=== PATIENT | female | born 1960 | race Two or more races ===

== ENCOUNTER 2016-12-28 11:56 | Day surgery (SDC) | payer OTHER ==
[~2016-12-28] VITALS: Ht 157.5 cm; Wt 67.0 kg
[2016-12-28 13:24] VITALS: Ht 157.5 cm; Wt 67.0 kg
[2016-12-28 14:25] VITALS: BP 118/65; PULSE 54; RESP 18
[2016-12-28 15:35] VITALS: BP 123/64; PULSE 56; RESP 16
--- NOTE | 2016-12-28 17:42 | GILP ---
DATE OF PROCEDURE: 12/28/2016 PROCEDURE: Colonoscopy with polyp ablation, colonoscopy with biopsies and localization tattoo. SURGEON: Blanche Lockwood MD BRIEF HISTORY AND INDICATIONS: The patient is here for colorectal cancer screening. PREMEDICATION: Monitored anesthesia care by anesthesiologist. INSTRUMENT USED: Olympus colonoscope. PREPARATION: Adequate. TECHNIQUE: After informed consent, with the patient/relatives understanding the procedure, its indic ations potential risks and complications, including but not limited to: allergic reaction, bleeding, perforation, infection, missed lesions and after all pertinent questions were answered to the patie nt's satisfaction, the patient/relatives signed the witnessed informed consent. Following this, premedication was administered slowly IV push by under careful cardiovascular and re spiratory monitoring with pulse oximetry, automatic blood pressure and secured entrance monitor. Once the sedativ e effect was achieved, the patient was placed in the left lateral decubitus position, digital rectal examination was performed. The colonoscope was then introduced and advanced under visual control th roughout all segments of the colon including: the rectum, sigmoid, descending colon, splenic flexure , transverse colon, hepatic flexure, ascending colon and finally reaching the cecum which was clearl y identified by transillumination, finger indentation and the ileocecal valve. Careful examination o f the mucosa of the lower gastrointestinal tract both on insertion as well as withdrawal of the inst rument disclosed the following findings: Rectal Examination: Showed small external hemorrhoids and a skin tag. Colonic Mucosa: The colonic mucosa is remarkable for about a 2 cm sessile polyp/mass at approximate ly 15 cm. The mass was biopsied and localization tattoo was applied. A 6 mm polyp was noted in the sigmoid colon and was completely ablated with biopsy forceps. The rem ainder of colonic mucosa unremarkable. The ileocecal valve was clearly identified and appears unrem arkable. The instrument was withdrawn reexamining the mucosa in detail. No additional abnormalitie s are noted with exception of moderate sized internal hemorrhoids. The instrument was then withdrawn, the patient tolerated the procedure well and was transferred out of the Endoscopy Suite awake and in good condition to continue recovery under observation. IMPRESSION: 1. A 2 cm sessile polyp/mass at 15 cm. Not endoscopically resectable. 2. Biopsies obtained, localization tattoo applied. 3. A 6 mm polyp sigmoid colon ablated. 4. Moderate sized internal hemorrhoids. PLAN: Pathology will be reviewed as soon as available. The patient will require surgical excision of the lesion. Surveillance colonoscopy in 1 year is recommended. Dictated By: BLANCHE LOCKWOOD MS/CRISTINE Conf#: [id number] DID#: [id number] CC: BLANCHE LOCKWOOD;*EndCC*
== END 2016-12-28 15:37 | disposition home or self-care (01) ==
LOC: GIL 11:56
PROVIDERS: ATTEND Internal Medicine Gastroenterology
DX: Z12.11 Encounter for screening for malignant neoplasm of colon (principal); D12.5 Benign neoplasm of sigmoid colon; K62.1 Rectal polyp; K64.8 Other hemorrhoids
CPT/HCPCS: 45380; 88305; Z7610